=== PATIENT | female | born 1955 | race Caucasian/White ===

== ENCOUNTER 2023-11-24 08:21 | Outpatient (REF) | payer MEDICARE, SELFPAY | END 2023-11-24 08:22 | disposition home or self-care (01) | LOC: CF 08:21 | DX: Z13.89 Encounter for screening for other disorder (principal) ==

== ENCOUNTER 2023-11-27 13:20 | Outpatient (REF) | payer MEDICARE, SELFPAY ==
--- NOTE | ~2023-11-27 | XR_ITS ---
EXAMINATION: XR LUMBOSACRAL SPINE CLINICAL INFORMATION: Reason for Exam M54.16 - Radiculopathy, lumbar region COMPARISON: None TECHNIQUE: 3 views of the lumbar spine FINDINGS: 5 nonrib-bearing lumbar-type vertebral bodies. Vertebral body heights are maintained. Dextroconvex curvature of the lumbar spine. No instability on flexion extension views. Mild multilevel degenerative disc disease and minimal loss of disc space height and multilevel facet arthropathy. Atherosclerosis of the abdominal aorta. Right upper quadrant cholecystectomy clips. XR/XR lumbar spine 4V min IMPRESSION: 1. Dextroconvex curvature of the lumbar spine. No instability on flexion extension views. 2. Mild multilevel degenerative disc disease and minimal loss of disc space height and multilevel facet arthropathy.
== END 2023-11-27 13:21 | disposition home or self-care (01) ==
LOC: HO.HOSX 13:20
PROVIDERS: Visit Provider Physician Assistant
DX: M54.16 Radiculopathy, lumbar region (principal)
CPT/HCPCS: 72110; 99202

== ENCOUNTER 2023-11-27 13:20 | Outpatient (AMB) | payer MEDICARE, SELFPAY ==
--- NOTE | 2023-11-27 13:25 | A.SPINEOV_ITS ---
Intake Visit Reasons: Lumbar radiculopathy Intake Note: Ms. Bagley is here today c/o back pain that radiates to the legs and make it hard for walking. MRI done at [facility] uploaded to chart. 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 She is a very nice 68 year old female presents to the office today for evaluation of symptoms that started sometime in July. This would include back pain, bilateral calf pain, but primarily on the right. She does get pain into her right groin that goes down into her right calf. She occasionally will get pain into the anterior portion of her ankle as well, it feels like a knife. She will get left gluteal pain and left calf pain from time to time as well. The pain is particularly bad if she has driving in a car, walking up stairs or walking any distances. She will have to sit on her left buttock to make the pressure go off the right side. She underwent physical therapy but this was not successful in helping make things anymore manageable. She can not do cortisone injections, she has had bad reactions to them in the past so was unable to use them to treat this. At this point the pain is becoming very unbearable, it is affecting her quality of life significantly and she is interested in discussing possible surgical options. She has taken Tylenol and gabapentin. The gabapentin makes her feel somewhat fuzzy. She is hoping to come off this. 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 PMH: She has a history of high cholesterol, she has had an ovarian cyst removal, previous ectopic pregnancies. History of left shoulder surgery, cholecystectomy. To benign cyst removed from her breast. Denies any history of heart attacks, strokes, kidney disorders, liver disease, blood clotting disorders, cancer, major abdominal/intestinal surgeries. Social hx: She smokes about a pack a day, she smokes marijuana daily as well to help with the pain, does not drink alcohol Medications: Vitamin-D, Co Q10, pravastatin, gabapentin and Tylenol Allergies: Cortisone shots gave her severe reactions of swelling, vitamin E, erythromycin, ibuprofen. She gets very sick with oxycodone and prefers Vicodin if she has a procedure. Physical exam: Awake alert oriented no acute distress, she is uncomfortable, changing positions in her chair from time to time. She has positive straight leg raise at about 30 degrees, full strength of bilateral lower extremities. Antalgic gait Imaging review: There is a lumbar MRI from [facility] which has been loaded into our system for review and this shows a possible grade 1 spondylolisthesis at L4-5, there is a large right L4-5 T2 hyperintense signal in the lateral recess which seems most consistent with synovial cyst. This is reported by the radiologist as well. There is severe displacement and compression of the right L5 nerve root. Impression: 68-year-old female presents to the office today for evaluation of back pain, bilateral but primarily right L5 radiculopathy down into her calf and into her anterior groin. She has tried some basic conservative treatment since this started in July this would include physical therapy, Tylenol, gabapentin, tincture of time. She can not take anti-inflammatories and can not do cortisone injections. The patient has a large synovial cyst on the right at L4-5 compressing the right L5 nerve root. I believe this to be the source of her right leg pain. It is not uncommon to be seen in spine patient's that there can be bilateral pain when there is only unilateral pathology, however I explained to the patient that if we would offer her surgery that it would be unpredictable as to whether the left-sided in symptoms would improve. I sent the patient for standing flexion-extension x-rays, there is no signs of instability. Typically this is something Dr. Guerrero would offer right L4-5 synovial cyst removal. I discussed the procedure at length and will review her imaging with him. I tentatively scheduled her for the procedure January 20, and will confirm with Dr. Guerrero. Pt was given risk and benefits of surgery including but not limited to infection, hematoma , nerve injury,durotomy, weakness,bowel/bladder injury, persistent pain, recurrent synovial cyst as well as the option to continue with conservative treatment and patient wishes to proceed with surgery. Pt is aware they should stop their motrin, aspirin 7 days prior to surgery. All questions were answered to the best of our ability. If there is anything about this patients medical history that we have overlooked or concerns you have about us proceeding with surgery we would appreciate any input you can offer. Thank you for allowing us to care for your patient. The total time spent with this visit with this patient was 45 minutes reviewing history, physical exam, lumbar imaging review, and implementation of treatment plan or further diagnostic testing Tashi Guerrero MD,PhD [facility] Orders: Orders XR lumbar spine 4V min Today M54.16 - Radiculopathy, lumbar region Coding Level of Care Code New Pt Level 4 (32643) Diagnoses Lumbar radiculopathy M54.16
== END 2023-11-27 14:51 | disposition home or self-care (01) ==
PROVIDERS: Referring Provider Physical Medicine & Rehabilitation; Visit Provider Physician Assistant
DX: M54.16 Radiculopathy, lumbar region (principal)
CPT/HCPCS: 99204

== ENCOUNTER → 2024-01-21 13:28 | Day surgery (SDC) | payer MEDICARE, SELFPAY ==
[2024-01-08 10:13] VITALS: BP 122/59; PULSE 74; RESP 18; O2SAT 96; BMI 26.9
--- NOTE | 2024-01-08 10:29 | HO.ANESPROP2 ---
HPI - Anesthesia Eval Consult details Narrative: 68yo F for Right L4-5 Synovial Cyst Removal, 01/21/24 No recent illness No CP/SOB with minimal activity r/t back pain. No limitations prior to pain starting 07/2023 PONV - never tried scop patch GERD - Tums PRN PMFSH Active Problems Active Problems: All Active Problems Lumbar radiculopathy (Acute) Past Medical History Medical History (Updated 01/08/24 @ 10:03 by Deisy Oconnell RN) Arthritis GERD (gastroesophageal reflux disease) Post-operative nausea and vomiting Lung nodule Osteopenia Synovial cyst Hx of ectopic Elevated cholesterol Back pain Family History Family history of problems with anesthesia: No Surgical History Surgical History (Updated 01/08/24 @ 10:03 by Deisy Oconnell RN) H/O colonoscopy History of intraocular lens implant History of breast lump/mass excision Hx of cholecystectomy Hx of shoulder surgery Hx of ovarian cystectomy History of Problems with Anesthesia: Yes (PONV) Social History Social History Are you a primary critical care paramedic to a significant other at home: No Do you presently have visiting nurse or other home services: No Patient Tobacco Use Status: Current someday Tobacco user Tobacco use type: Cigarette Cigarettes Per Day: 1 Years Smoked: 35 Smoked in Last 30 Days: Yes Use of substances other than those prescribed or required for medical reasons: Yes Substance Use Type Other:: smokes qHS Substance Use Frequency: Daily Have you been hit, kicked, punched, or otherwise hurt by someone within the past year? If so, by whom?: No Are you DNR?: No Advance Directives: No (daughter is primary contact) Advance Directives Information Provided: Yes (as above noted) Advance Directives on File: No Recently lost weight without trying: No Eating poorly because of decreased appetite: No Nutrition Risks: No Nutritional Risk Poor oral hygiene: No (broken tooth upper right) Meds Allergies Allergy/AdvReac Type Severity Reaction Status Date / Time cortisone Allergy Severe localized Verified 01/07/24 08:46 swelling oxycodone Allergy Severe Nausea and Verified 01/08/24 10:06 Vomiting-prefers vicodin erythromycin base Allergy Intermediate severe Verified 01/08/24 10:13 marilu infection Home Medications ?Medication ?Instructions ?Recorded ?Confirmed ?Last Taken ?Type gabapentin 400 mg capsule 400 mg PO TID 01/07/24 01/08/24 Unknown History pravastatin 40 mg tablet 40 mg PO QAM 01/07/24 01/08/24 Unknown History acetaminophen 500 mg capsule 1,000 mg PO BID 01/08/24 01/08/24 Unknown History cetirizine 10 mg tablet (Zyrtec) 10 mg PO BEDTIME 01/08/24 01/08/24 Unknown History cholecalciferol (vitamin D3) 25 50 mcg PO QAM 01/08/24 01/08/24 Unknown History mcg (1,000 unit) capsule (Vitamin D3) coenzyme Q10 200 mg capsule (Co 400 mg PO QAM 01/08/24 01/08/24 Unknown History Q-10) Exam Height,Weight and Vital Signs: Height 5 ft 3 in Weight 68.946 kg Last Vital Signs Pulse 74 01/08/24 10:13 Resp 18 01/08/24 10:13 BP 122/59 L 01/08/24 10:13 Pulse Ox 96 01/08/24 10:13 O2 Del Method Room Air 01/08/24 10:13 Pertinent Lab Results Pertinent Lab Results: Lab Results 01/08/24 Range/Units 11:18 WBC 7.7 (4.8-10.8) X10*3/uL RBC 5.07 (4.20-5.50) X10*6/uL Hgb 16.4 H (12.0-16.0) g/dl Hct 46.6 (37.0-47.0) % MCV 91.9 (80.0-98.0) fL MCH 32.3 (27.0-33.0) pg MCHC 35.2 H (31.0-35.0) g/dl RDW 11.8 (11.0-16.0) % Plt Count 305 (160-400) X10*3/uL MPV 9.9 (9.4-12.3) fL Absolute Nucleated RBC 0.000 (0.0-0.012) X10*3/uL Nucleated RBC % (auto) 0.0 (0.0-0.2) /100WBC Sodium 142 (135-145) mmol/L Potassium 4.3 (3.3-5.1) mmol/L Chloride 105 (96-108) mmol/L Carbon Dioxide 30 H (22-29) mmol/L Anion Gap 11 L (12-20) BUN 14 (9-16) mg/dL Creatinine 0.90 (0.5-1.4) mg/dL Estim Creat Clear Calc 54.9 Estimated GFR > 60 Random Glucose 96 (60-115) mg/dL Calcium 10.0 (8.4-10.2) mg/dL Narrative Narrative: EKG NSR @ 79 Low volt QRS Airway Mallampati Class: II TM Dist: >3cm Neck ROM: Full Loose/Missing/Broken Teeth: Yes (Broken RU molar, capped molars) Heart: RRR Lungs: CTAB Assessment and Plan Assessment Anesthesia Assessment: Anesthesia Plan Discussed, Smoking Cess. Discussed and PAT Visit Final Anesthetic Review Family History of Problems with Anesthesia: No History of Problems with Anesthesia: Yes (PONV)
[2024-01-08 12:00] LABS: Hematocrit 46.6 % (37.0-47.0); Hemoglobin 16.4 g/dl (12.0-16.0); Mean Corpuscular HGB Conc 35.2 g/dl (31.0-35.0); Mean Corpuscular Hemoglobin 32.3 pg (27.0-33.0); Mean Corpuscular Volume 91.9 fL (80.0-98.0); Mean Platelet Volume 9.9 fL (9.4-12.3); Platelet Count 305 X10*3/uL (160-400); Red Blood Count 5.07 X10*6/uL (4.20-5.50); Red Cell Distribution Width 11.8 % (11.0-16.0); White Blood Count 7.7 X10*3/uL (4.8-10.8)
[2024-01-08 12:38] LABS: Anion Gap 11 (12-20); Blood Urea Nitrogen 14 mg/dL (9-16); Carbon Dioxide 30 mmol/L (22-29); Chloride 105 mmol/L (96-108); Creatinine Clr Calc Pharmacy 54.9; Estimated Glomerular Filt Rate > 60; Glucose Random 96 mg/dL (60-115); Potassium 4.3 mmol/L (3.3-5.1); Sodium 142 mmol/L (135-145)
--- NOTE | 2024-01-21 13:53 | PC.NURSE ---
Surgery canceled after surgeon evaluation. No right let pain at this time. Pt to f/u in the office after d/c of gabapentin. MD to contact pt with in office apt.
== END ==
LOC: HO.SSS 13:29
PROVIDERS: Nurse Practitioner; PCP Nurse Practitioner Family; Visit Provider Neurological Surgery
DX: M54.16 Radiculopathy, lumbar region (principal); Z53.8 Procedure and treatment not carried out for other reasons
CPT/HCPCS: 36415; 80048; 85027

== ENCOUNTER 2024-02-05 11:34 | Outpatient (AMB) | payer MEDICARE, SELFPAY ==
--- NOTE | 2024-02-05 11:48 | HO.SPINEOV ---
Intake Visit Reasons: Follow up leg pain Intake Note: Ms. Bagley is here today to follow up regarding leg pain. 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 She was scheduled to undergo a synovial cyst resection but on the day of surgery she mentioned that her most symptoms were on the left side and the cyst was on the right side. I canceled the surgery and advised her to stop her gabapentin to see if the right lumbar radiculopathy returned. Today she states that the right side is not really bothering her what she has severe left sided pain in the SI joint region. She can not sit on the left side. She can not lay on her side. The preferred position is supine. The MRI of the lumbar spine is unremarkable for the left side. She was seen by a physical therapist, who diagnosed her with left SI joint dysfunction based on her history and physical exam with positive GREGORIO and compression test. I agree with the findings and diagnosis of left SI joint dysfunction. I prescribed an SI joint belt and I will refer her for a diagnostic left SI joint injection to Dr. Jovel. She will follow-up after the injection is done. I did reiterate to her that if the right lumbar radiculopathy returns that this is coming from the synovial cyst. I spent 30 minutes in his consult preparation, review of imaging and discussing plan of care. Huber Guerrero MD, PhD Spine Fellowship Trained Neurosurgeon Director, [facility] Orders: Referrals Pain Management Referral M53.3 - Sacrococcygeal disorders, not elsewhere classified Medications: New sacroiliac belt As directed 1 ea 0RF left SI joint dysfunction M53.3 - Sacrococcygeal disorders, not elsewhere classified sacroiliac belt As directed 1 ea 0RF sacroiliac belt As directed 1 ea 0RF left SI joint dysfunction M53.3 - Sacrococcygeal disorders, not elsewhere classified Coding Level of Care Code Est Pt Level 4 (37941) Diagnoses SI (sacroiliac) joint dysfunction M53.3
== END 2024-02-05 12:08 | disposition home or self-care (01) ==
PROVIDERS: PCP Nurse Practitioner Family; Visit Provider Neurological Surgery
DX: M53.3 Sacrococcygeal disorders, not elsewhere classified (principal)
CPT/HCPCS: 99214

== ENCOUNTER → 2024-02-05 11:34 | Outpatient (BNVA) | payer MEDICARE, SELFPAY | PROVIDERS: PCP Nurse Practitioner Family; Visit Provider Neurological Surgery | DX: M53.3 Sacrococcygeal disorders, not elsewhere classified (principal) | CPT/HCPCS: 99212 ==